=== PATIENT | male | born 1935 | race Caucasian/White ===

== ENCOUNTER 2016-09-27 20:26 | Emergency (ER) | payer OTHER ==
[~2016-09-27] VITALS: Ht 180.3 cm; Wt 68.0 kg
[2016-09-27] MEDS ORDERED: LIPITOR10 MG (20:57)
[2016-09-27] MEDS ORDERED: VITAMINC500 PO (20:57)
[2016-09-27] MEDS ORDERED: ASPIR 8181 MG PO (20:57)
[2016-09-27] MEDS ORDERED: APAP500 PO (20:57)
[2016-09-27] MEDS ORDERED: COREG3.125 MG (20:58)
[2016-09-27] MEDS ORDERED: PLAVIX 75 MG TA75 M1 PO (20:59)
[2016-09-27] MEDS ORDERED: CLONAZEPAM 0.50.5 M1 (20:59)
[2016-09-27] MEDS ORDERED: IRON325 PO (20:59)
[2016-09-27] MEDS ORDERED: NEURONTIN 300300 M1 (21:00)
[2016-09-27] MEDS ORDERED: IPRAT-ALBUT 0.5-3 ML INH (21:01)
[2016-09-27] MEDS ORDERED: IPRATROPIUM BRO15 ML NASAL (21:01)
[2016-09-27] MEDS ORDERED: LEVOTHYROXIN0.075 MG PO (21:02)
[2016-09-27] MEDS ORDERED: PROBIOTIC1 EAC1 PO (21:02)
[2016-09-27] MEDS ORDERED: MELATONIN3 MG PO (21:03)
[2016-09-27 21:04] LABS: BASOPHILS 0.7 % (0.0-2.0); EOSINOPHILS 1.1 % (0.0-3.0); HEMATOCRIT 32.3 % (42.0-52.0); HEMOGLOBIN 10.9 gm/dL (14.0-18.0); LYMPHOCYTES 10.1 % (24.0-44.0); MCH 32.9 pg (26.0-34.0); MCHC 33.7 g/dL (28.0-37.0); MCV 97.6 fL (80.0-100.0); PLATELET COUNT 150 thou/uL (150-400); POLYS 81.1 % (36.0-66.0); RBC 3.31 mil/uL (4.50-6.00); RDW 15.1 % (10.5-14.5); WBC 9.8 thou/uL (4.0-11.0)
[2016-09-27] MEDS ORDERED: MIDODRINE HCL 55 M1 (21:04)
[2016-09-27] MEDS ORDERED: OMEGA-31000 M1 (21:05)
[2016-09-27] MEDS ORDERED: ELOCON15 GM TOP (21:05)
[2016-09-27] MEDS ORDERED: MESTINON60 MG (21:06)
[2016-09-27] MEDS ORDERED: SENOKOT-S1 TA1 (21:06)
[2016-09-27 21:07] LABS: MANUAL DIFF NO
[2016-09-27] MEDS ORDERED: TORSEMIDE20 MG PO (21:07)
[2016-09-27] MEDS ORDERED: TORSEMIDE20 MG (21:07)
[2016-09-27] MEDS ORDERED: VITAMIN D1000 UNI1 (21:08)
[2016-09-27 21:12] LABS: CREATININE 1.4 mg/dL (0.6-1.3); POTASSIUM 4.3 mmol/L (3.5-5.1)
[2016-09-27 21:20] LABS: APTT 27.6 Seconds (24.5-32.8); PROTIME 10.5 Seconds (9.3-11.4)
[2016-09-27 23:47] VITALS: BP 105/67
== END 2016-09-27 23:47 ==
LOC: ER 20:26
PROVIDERS: Emergency Medicine
DX: S56.921A Laceration of unspecified muscles, fascia and tendons at forearm level, right arm, initial encounter (principal); D69.1 Qualitative platelet defects; X58.XXXA Exposure to other specified factors, initial encounter; Y93.89 Activity, other specified; Y92.89 Other specified places as the place of occurrence of the external cause; Y99.8 Other external cause status